=== PATIENT | female | born 1990 | race Caucasian/White ===

== ENCOUNTER 2020-08-05 13:41 | Emergency (ER) | payer OTHER, SELFPAY ==
[2020-08-05 14:22] VITALS: BP 114/78; PULSE 87; RESP 18; TEMP 36.4; O2SAT 100; BMI 26.6
[2020-08-05 15:44] LABS: MANUAL DIFF FLAG NO
[2020-08-05 15:46] LABS: Basophils Percent Auto 0.3 % (0-2); Eosinophils Absolute Auto 0.1 X10*3/uL (0.0-0.4); Hematocrit 38.7 % (37-47); Hemoglobin 13.6 g/dl (12.0-16.0); Imm Gran Abs Auto 0.02 X10*3/uL (0.00-0.03); Imm Gran Pct Auto 0.3 % (0.0-0.4); Lymphocytes Absolute Auto 2.1 X10*3/uL (1.2-4.9); Mean Corpuscular HGB Conc 35.1 g/dl (31.0-35.0); Mean Corpuscular Hemoglobin 30.4 pg (27.0-33.0); Mean Corpuscular Volume 86.6 fL (80-98); Mean Platelet Volume 8.7 fL (9.4-12.3); Monocytes Absolute Auto 0.6 X10*3/uL (0.1-1.2); Monocytes Percent Auto 7.9 % (2-11); Neutrophils Absolute Auto 4.6 X10*3/uL (2.0-8.3); Neutrophils Percent Auto 62.5 % (45-73); Platelet Count 374 X10*3/uL (160-400); Red Blood Count 4.47 X10*6/uL (4.20-5.50); Red Cell Distribution Width 11.8 % (11.0-16.0); White Blood Count 7.4 X10*3/uL (4.8-10.8)
[2020-08-05 16:14] LABS: Alanine Aminotransferase 14 U/L (0-31); Albumin Level 4.3 g/dL (3.5-5.0); Alkaline Phosphatase 65 U/L (39-117); Anion Gap 13 (12-20); Aspartate Amino Transferase 13 U/L (5-31); Bilirubin Direct 0.2 mg/dL (0.0-0.5); Bilirubin Total 0.4 mg/dL (0.0-1.0); Blood Urea Nitrogen 15 mg/dL (9-16); Calcium 9.6 mg/dL (8.4-10.2); Carbon Dioxide 26 mmol/L (22-29); Chloride 106 mmol/L (96-108); Estimated Glomerular Filt Rate > 60; Glucose Random 86 mg/dL (60-115); Lipase 14 U/L (8-78); Potassium 4.6 mmol/L (3.3-5.1); Sodium 140 mmol/L (135-145); Total Protein 7.3 g/dL (6.5-8.0)
== END 2020-08-05 17:53 | disposition left against medical advice (07) ==
LOC: HO.ED 17:47
PROVIDERS: Emergency Provider Emergency Medicine; PCP Internal Medicine
DX: R10.9 Unspecified abdominal pain (principal)
CPT/HCPCS: 36415; 80053; 80076; 82248; 83690; 85025; 99282; 99283

== ENCOUNTER 2021-06-18 08:07 | Emergency (ER) | payer OTHER, SELFPAY ==
[2021-06-18 08:10] VITALS: BP 137/82; PULSE 93; RESP 18; TEMP 36.3; O2SAT 97; BMI 29.3
--- NOTE | 2021-06-18 09:03 | ED.SKABFB ---
HPI - Skin/Abscess/Foreign Bdy General Chief complaint: Skin/Abscess/Foreign Body Stated complaint: Chemical burn - arm Time Seen by Provider: 06/18/21 09:03 Source: patient Mode of arrival: ambulatory History of Present Illness HPI narrative: 30-year-old female with a past medical history of bipolar, PCOS, presenting to the ED complaining of chemical burn to right forearm s/p using Easy-Off heavy duty oven water filter cleaner while cleaning this morning. Reports area is burning/stinging. Admits to washing with water for about 5 minutes this morning [employer]. Admits to swell area to left. Denies fever/chills or thermal burn MD complaint: rash Related Data Previous Rx's Medication Instructions Recorded fluconazole 100 mg tablet 100 mg PO .COMPLEX #11 tab 11/28/19 (Diflucan) meloxicam 7.5 mg tablet 7.5 mg PO DAILY PRN #14 tab 11/15/20 acetaminophen 500 mg tablet 500 mg PO Q6H PRN #20 tab 06/18/21 (Tylenol Extra Strength) bacitracin 500 unit/gram topical 1 appl TOPICAL BID #30 g 06/18/21 ointment Allergies Allergy/AdvReac Type Severity Reaction Status Date / Time haloperidol [From HALDOL] Allergy Severe INVOLUNTARY Verified 06/18/21 08:10 SPASMS ketorolac [From TORADOL] Allergy Intermediate HIVES Verified 06/18/21 08:10 Penicillins [PENICILLINS] Allergy Intermediate HIVES Verified 06/18/21 08:10 Sulfa (Sulfonamide Allergy Unknown UNKNOWN Verified 06/18/21 08:10 Antibiotics) [SULFA (SULFONAMIDE ANTIBIOTICS)] sulfamethoxazole Allergy Unknown UNKNOWN Verified 06/18/21 08:10 [From BACTRIM] trimethoprim [From BACTRIM] Allergy Unknown UNKNOWN Verified 06/18/21 08:10 shellfish derived Allergy Anaphylaxis Verified 06/18/21 08:10 Review of Systems Review of Systems: Constitutional: No Fever, No Chills ENT/Mouth: No Ear Pain, No Nasal Congestion, No sore throat, No Rhinorrhea, No Swallowing Difficulty Cardiovascular: No Chest Pain, No SOB Respiratory: No Cough, No Sputum, No Wheezing Gastrointestinal: No Nausea, No Vomiting, No Diarrhea, No Constipation, No Abdominal pain Genitourinary: No Dysuria, No Urinary Frequency, No Flank Pain Musculoskeletal: No joint pain, No Myalgias, No Joint Swelling Skin: No Skin Lesions, + rash Neuro: No Weakness Yes all other systems are reviewed and are negative [facility] Past Medical History Attestation statement: The following information was validated with the patient. Medical History Bipolar 1 disorder PCOS (polycystic ovarian syndrome) Social History Social History Alcohol intake: never Patient Tobacco Use Status: Current everyday Tobacco user Cigarettes Per Day: 5 Advance Directives: No Advance Directives Information Provided: No Physical Exam Vital Signs: Vital Signs: Last Vital Signs Temp 97.3 F 06/18/21 08:10 Pulse 93 06/18/21 08:10 Resp 18 06/18/21 08:10 BP 137/82 06/18/21 08:10 Pulse Ox 97 06/18/21 08:10 BMI result Body Mass Index 29.3 Const: General: cooperative, healthy appearing and no acute distress Orientation/consciousness: patient oriented x3 Limitations: no limitations HEENT: Head: Yes normal to inspection and Yes atraumatic Ears: hearing grossly normal bilaterally General nose exam: Normal external nose present Face and sinus: Yes normal facial exam Eyes: General: appearance normal, both eyes and all related structures EOM: EOMs intact bilaterally Neck: Neck: Yes normal visual inspection and Yes no meningeal signs Resp: Effort & Inspection: normal respiratory effort and no respiratory distress Cardio: Rate: regular rate Peripheral pulses: radial pulses present Skin: Other: Please refer to image above.+ erythematous, burn to right forearm. Tender to palpation. No blistering/bleeding. No fluctuance/induration or drainage. Wounds: no wounds Neuro: General: patient oriented x3, tone normal and no meningeal signs Gait exam (Neuro): Normal gait present Extrem: General: Yes normal to inspection MDM - Skin/Abscess/Foreign Bdy MDM Narrative Medical decision making narrative: 30-year-old female with a past medical history of bipolar, PCOS, presenting to the ED complaining of chemical burn to right forearm s/p using oven water filter cleaner while cleaning this morning. On exam vital signs stable, NAD/nontoxic, physical exam as above. Please refer to images. No hydrofluoric acid in ingredients Will have patient irrigate additionally in the ED and apply topical bacitracin at home Discussed worrisome signs and symptoms and strict return precautions Medical Records Attestation: I reviewed the patient's medical records. Lab Data Attestation: I reviewed the patient's lab results. Discharge Plan Discharge Clinical Impression: Chemical burn Patient Disposition: Home, Self-Care Instructions: Chemical Skin Burn (ED) Additional Instructions: Your gait burn at home. Apply topical bacitracin twice daily. You may also put cold/ice to the area however put a barrier between the ice and skin If area begins to look infected, there is drainage or you have fever please return to the emergency department Prescriptions: New bacitracin 500 unit/gram ointment 1 appl topical BID Qty: 30 0RF acetaminophen [Tylenol Extra Strength] 500 mg tablet 500 mg PO Q6H PRN (Reason: pain or fever) Qty: 20 0RF No Action fluconazole [Diflucan] 100 mg tablet 100 mg PO .COMPLEX Qty: 11 0RF Rx Instructions: 100 mg PO 2 pills a day 1, 1 pill daily; meloxicam 7.5 mg tablet 7.5 mg PO DAILY PRN (Reason: pain) Qty: 14 0RF Referrals: Consuelo Thomas APRN [Primary Care Provider] - 3 days
--- NOTE | 2021-06-18 09:22 | PC.NURSE ---
PT NOT SATISFIED WITH BEING OFFERED IBUPROFEN OR TYLENOL FOR HER PAIN. PT ASKING TO SPEAK DIRECTLY WITH PROVIDER ABOUT THIS. PROVIDER AWARE AND SPOKE WITH PATIENT.
== END 2021-06-18 09:28 | disposition home or self-care (01) ==
PROVIDERS: Emergency Provider Emergency Medicine; PCP Nurse Practitioner Pediatrics
DX: T22.411A Corrosion of unspecified degree of right forearm, initial encounter (principal); T32.0 Corrosions involving less than 10% of body surface; Y93.E9 Activity, other interior property and clothing maintenance; Y92.000 Kitchen of unspecified non-institutional (private) residence as the place of occurrence of the external cause; Y99.9 Unspecified external cause status
CPT/HCPCS: 99283

== ENCOUNTER 2022-04-10 06:16 | Emergency (ER) | payer OTHER, SELFPAY ==
--- NOTE | ~2022-04-10 | US_ITS ---
EXAMINATION: US RETROPERITONEAL LIMITED (RENAL ONLY) CLINICAL INFORMATION: Left flank pain. COMPARISON: 04/27/2019 right renal ultrasound. TECHNIQUE: Multiple 2-D grayscale and Doppler ultrasound images of the kidneys were obtained. FINDINGS: RIGHT KIDNEY: 10.8 x 4.9 x 5.2 cm (SAG x AP x TRV). An echogenic focus in the upper pole measures 0.4 cm. Color Doppler showed no abnormal vascular flow. No hydronephrosis. LEFT KIDNEY: 11.1 x 4.9 x 5.1 cm (SAG x AP x TRV). The kidney is normal in size, contour, and echogenicity. Renal cortical thickness is normal. No calculi or focal parenchymal lesions. No hydronephrosis. US/US renal BI IMPRESSION: 0.4 cm echogenic focus in the upper pole the right kidney is nonspecific. A nonobstructing calculus cannot be excluded. No other significant abnormality.
--- NOTE | ~2022-04-10 | US_ITS ---
EXAMINATION: US PELVIS TRANSABDOMINAL/TRANSVAGINAL COMPLETE CLINICAL INFORMATION: Left-sided pelvic pain, rule out torsion. COMPARISON: None TECHNIQUE: Ultrasound of the pelvis is performed using both transabdominal and transvaginal transducers along with Doppler. Transvaginal imaging is performed due to inadequate visualization transabdominally. FINDINGS: Uterus: Anteverted/anteflexed measuring 8.1 x 4.0 x 5.0 cm. The endometrial stripe measures up to 0.5 cm without focal abnormality. Color Doppler showed no abnormal vascular flow. The cervix is closed measuring up to 3.0 cm in length. No significant free fluid in the cul-de-sac. Minimal pelvic free fluid. Right ovary measures 2.6 x 2.1 x 1.6 cm. 4.6 mL volume. Color Doppler showed no abnormal vascular flow. Left ovary measures 3.3 x 1.9 x 2.5 cm. 8.1 mL volume. Color Doppler showed no abnormal vascular flow. Urinary bladder: Mildly distended without focal abnormality. US/US pelvic and transvaginal IMPRESSION: Unremarkable pelvic ultrasound. No evidence for ovarian torsion.
--- NOTE | ~2022-04-10 | US_ITS ---
EXAMINATION: US PELVIS TRANSABDOMINAL/TRANSVAGINAL COMPLETE CLINICAL INFORMATION: Left-sided pelvic pain, rule out torsion. COMPARISON: None TECHNIQUE: Ultrasound of the pelvis is performed using both transabdominal and transvaginal transducers along with Doppler. Transvaginal imaging is performed due to inadequate visualization transabdominally. FINDINGS: Uterus: Anteverted/anteflexed measuring 8.1 x 4.0 x 5.0 cm. The endometrial stripe measures up to 0.5 cm without focal abnormality. Color Doppler showed no abnormal vascular flow. The cervix is closed measuring up to 3.0 cm in length. No significant free fluid in the cul-de-sac. Minimal pelvic free fluid. Right ovary measures 2.6 x 2.1 x 1.6 cm. 4.6 mL volume. Color Doppler showed no abnormal vascular flow. Left ovary measures 3.3 x 1.9 x 2.5 cm. 8.1 mL volume. Color Doppler showed no abnormal vascular flow. Urinary bladder: Mildly distended without focal abnormality. US/US pelvic ovarian doppler IMPRESSION: Unremarkable pelvic ultrasound. No evidence for ovarian torsion.
[2022-04-10 06:28] VITALS: BP 126/82; PULSE 91; RESP 18; TEMP 36.6; O2SAT 95; BMI 29.9
[2022-04-10 07:55] VITALS: BP 117/80; PULSE 66; RESP 17; TEMP 36.7; O2SAT 96
[2022-04-10 08:44] LABS: MANUAL DIFF FLAG NO
[2022-04-10 08:46] LABS: Basophils Percent Auto 0.3 % (0-2); Eosinophils Absolute Auto 0.1 X10*3/uL (0.0-0.4); Eosinophils Percent Auto 0.8 % (0-4); Hematocrit 39.4 % (37.0-47.0); Hemoglobin 13.1 g/dl (12.0-16.0); Imm Gran Abs Auto 0.01 X10*3/uL (0.00-0.03); Imm Gran Pct Auto 0.2 % (0.0-0.4); Lymphocytes Absolute Auto 1.8 X10*3/uL (1.2-4.9); Lymphocytes Percent Auto 26.7 % (20-40); Mean Corpuscular HGB Conc 33.2 g/dl (31.0-35.0); Mean Corpuscular Volume 87.4 fL (80.0-98.0); Mean Platelet Volume 8.4 fL (9.4-12.3); Monocytes Absolute Auto 0.6 X10*3/uL (0.1-1.2); Monocytes Percent Auto 9.3 % (2-11); Neutrophils Absolute Auto 4.1 x10*3/uL (2.0-8.3); Neutrophils Percent Auto 62.7 % (45-73); Platelet Count 312 X10*3/uL (160-400); Red Blood Count 4.51 X10*6/uL (4.20-5.50); Red Cell Distribution Width 12.4 % (11.0-16.0); White Blood Count 6.6 X10*3/uL (4.8-10.8)
[2022-04-10 08:49] LABS: Appearance Urine Clear; Color Urine Yellow; Glucose Urine UA Negative (Negative); Leukocyte Esterase Urine Negative (Negative); Nitrite Urine Negative (Negative); Specific Gravity - Urine 1.025 (1.005-1.025); UMIC TRIGGER UACC YES; Urine Blood Trace (Negative); Urine Ketones Negative (Negative); Urine Protein Negative (Neg-Trace)
[2022-04-10 08:54] LABS: UPreg QC Valid YES; Urine Pregnancy NEGATIVE (NEGATIVE)
[2022-04-10] MEDS: ondansetron HCL 4 MG/2 ML VIAL IVPUSH (08:58)
[2022-04-10] MEDS: HYDROmorphone HCl 1 MG/ML SYRINGE 0.5 MG IVPUSH (08:58)
[2022-04-10] MEDS: 0.9 % Sodium Chloride 1,000 ML 999 ML IV (08:58)
--- NOTE | 2022-04-10 09:05 | PC.NURSE ---
PT CURRENTLY IN ULTRASOUND
[2022-04-10 09:07] LABS: Alanine Aminotransferase 14 U/L (0-31); Albumin Level 4.2 g/dL (3.5-5.0); Alkaline Phosphatase 65 U/L (39-117); Anion Gap 11 (12-20); Aspartate Amino Transferase 11 U/L (5-31); Bilirubin Direct < 0.2 mg/dL (0.0-0.5); Bilirubin Total 0.4 mg/dL (0.0-1.0); Blood Urea Nitrogen 16 mg/dL (9-16); Carbon Dioxide 21 mmol/L (22-29); Chloride 114 mmol/L (96-108); Creatinine Clr Calc Pharmacy 135.2; Estimated Glomerular Filt Rate > 60; Glucose Random 88 mg/dL (60-115); Lipase 15 U/L (8-78); Potassium 4.2 mmol/L (3.3-5.1); Sodium 142 mmol/L (135-145); Total Protein 6.7 g/dL (6.5-8.0)
[2022-04-10 09:22] LABS: Bacteria Urine 1+ (None Seen); Hyaline Casts Urine 0-2 /LPF (0-2); WBC Urine 0-5 /HPF (0-5)
[2022-04-10 10:03] VITALS: BP 120/77; PULSE 58; RESP 17; TEMP 36.7; O2SAT 95
--- NOTE | 2022-04-10 11:22 | ED.GENADULT ---
HPI - General Adult General Chief complaint: Abdominal Pain Stated complaint: pelvic pain, possible kidney infection Time Seen by Provider: 04/10/22 08:02 Source: patient Mode of arrival: ambulatory Limitations: no limitations History of Present Illness HPI narrative: 31-year-old female with history of pelvic congestion syndrome presents with pelvic pain. The pain is left-sided. It radiates to the flank. There is a constant component with exacerbations. The symptoms are no clear relieving or exacerbating features. There is no urinary frequency, urgency or dysuria. There is dark urine color. She does have some nausea but no vomiting. She denies any constipation or diarrhea. Her symptoms are consistent with her previous pelvic congestion with the exception that her symptoms are worse than usual and they are now radiating to the left flank. Patient denies any fevers chills, cough, mucus production, runny nose, sore throat, rashes, headaches, vision changes Related Data Home Medications Medication Instructions Recorded Confirmed sertraline 100 mg tablet 200 mg PO DAILY 07/15/21 Previous Rx's Medication Instructions Recorded fluconazole 100 mg tablet 100 mg PO .COMPLEX #11 tabs 11/28/19 (Diflucan) meloxicam 7.5 mg tablet 7.5 mg PO DAILY PRN pain #14 tabs 11/15/20 acetaminophen 500 mg tablet 500 mg PO Q6H PRN pain or fever 06/18/21 (Tylenol Extra Strength) #20 tabs bacitracin 500 unit/gram topical 1 appl topical BID #30 grams 06/18/21 ointment oxycodone 5 mg tablet 5 mg PO Q8H PRN pain #10 tabs 04/10/22 Allergies Allergy/AdvReac Type Severity Reaction Status Date / Time haloperidol [From HALDOL] Allergy Severe INVOLUNTARY Verified 04/10/22 06:28 SPASMS ketorolac [From TORADOL] Allergy Intermediate HIVES Verified 04/10/22 06:28 Penicillins [PENICILLINS] Allergy Intermediate HIVES Verified 04/10/22 06:28 Sulfa (Sulfonamide Allergy Unknown UNKNOWN Verified 04/10/22 06:28 Antibiotics) [SULFA (SULFONAMIDE ANTIBIOTICS)] sulfamethoxazole Allergy Unknown UNKNOWN Verified 04/10/22 06:28 [From BACTRIM] trimethoprim [From BACTRIM] Allergy Unknown UNKNOWN Verified 04/10/22 06:28 shellfish derived Allergy Anaphylaxis Verified 04/10/22 06:28 Review of Systems Review of Systems: CONSTITUTIONAL: Denies weight loss, fever and chills. HEENT: Denies changes in vision and hearing. RESPIRATORY: Denies SOB and cough. CV: Denies palpitations no CP. GI: Positive for pelvic pain, nausea, no vomiting, no diarrhea constipation a. : Denies dysuria and urinary frequency. No vaginal discharge or bleeding MSK: Denies myalgia and joint pain. SKIN: Denies rash and pruritus. NEUROLOGICAL: Denies headache and syncope. PSYCHIATRIC: Denies recent changes in mood. Denies anxiety and depression. All other ROS are negative unless in HPI PMFSH Past Medical History Medical History Bipolar 1 disorder PCOS (polycystic ovarian syndrome) Social History Social History Alcohol intake: never Patient Tobacco Use Status: Current everyday Tobacco user Cigarettes Per Day: 5 Advance Directives: No Advance Directives Information Provided: Yes Physical Exam ED Vital Signs: Vital Signs - 24 hr 04/10/22 06:28 04/10/22 07:55 04/10/22 10:03 Temperature 97.9 F 98.0 F 98.0 F Pulse Rate 91 66 58 Respiratory Rate 18 17 17 Blood Pressure 126/82 117/80 120/77 Pulse Oximetry 95 96 95 Oxygen Delivery Method Room Air Room Air Room Air BMI result Body Mass Index 29.9 GEN: Well developed, no acute distress, alert, oriented HEENT: Normocephalic, atraumatic, normal external ears, nose appears normal, no oropharyngeal edema or exudates Eyes: Normal to appearance Neck: Supple, no lymphadenopathy Respiratory: Talks in complete sentences, no respiratory distress, clear to auscultation bilaterally Cardiovascular: Regular rate and rhythm, no murmurs rubs or gallops Abdomen: Soft, nontender, nondistended, no guarding, no rebound Back: No CVA tenderness Extremities: No clubbing cyanosis or edema Neurologic: No focal neurologic deficits, cranial nerves 2-12 intact, strength is 5/5 bilaterally, gait normal Skin: No rash Course Course Course Narrative: 31-year-old female with history of pelvic congestion presents with pelvic pain. The symptoms are severe. They are worse than usual. Examination was. Patient had an ultrasound which did not identify any evidence of torsion or hydronephrosis. There was a possible nonobstructing kidney stone. Lab work did not reveal any significant acute abnormalities. She will receive analgesics, antiemetics, IV fluids and re-evaluate. Reevaluation(s) Reevaluation #1: Patient reports pain was improved temporarily. Will provide additional pain medication at this time. Time: 11:25 Reevaluation #2: Patient is currently feeling well enough would like to be discharged. We discussed all results. She has follow-up with her OBGYN. She is aware of reasons to return to the emergency department. Time: 11:59 Medications Administered Discontinued Medications Generic Name Dose Route Start Last Admin Trade Name Freq PRN Reason Stop Dose Admin Hydromorphone HCl 0.5 mg 04/10/22 08:08 04/10/22 08:58 Hydromorphone Hcl 1 Mg/Ml Syringe IVPUSH 04/10/22 08:09 0.5 mg ONCE ONE Administration Protocol Hydromorphone HCl 0.5 mg 04/10/22 11:28 04/10/22 11:41 Hydromorphone Hcl 0.5 Mg/0.5 Ml Syringe IVPUSH 04/10/22 11:29 0.5 mg ONCE ONE Administration Protocol Sodium Chloride 1,000 mls @ 999 mls/hr 04/10/22 08:15 04/10/22 10:00 Ns IV 04/10/22 09:15 Infused .Q1H1M SD Infusion Ondansetron HCl 4 mg 04/10/22 08:51 04/10/22 08:58 Ondansetron Hcl 4 Mg/2 Ml Vial IVPUSH 04/10/22 08:52 4 mg ONCE ONE Administration Medical Decision Making Medical Decision Making [facility] Narrative: 31-year-old female with history of pelvic congestion syndrome presents with pelvic pain. Is worse than usual. Radiates to the left flank. Multiple differential diagnosis of been considered including etiology, renal colic. Will order ultrasound of the abdomen pelvis and re-evaluate. Differential Diagnosis Differential Diagnoses: The differential diagnosis associated with the presentation includes (Pelvic congestion, torsion, ovarian cyst, IBD, IBS, renal colic, pyelonephritis) Admission/Observation Consideration of admission/observation: Escalation of care including admission/observation considered Lab Data [facility] Lab Attestation statement: I reviewed the patient's lab results. 04/10/22 08:36 04/10/22 08:36 Labs: Lab Results 04/10/22 04/10/22 04/10/22 Range/Units 08:36 08:36 08:40 WBC 6.6 (4.8-10.8) X10*3/uL RBC 4.51 (4.20-5.50) X10*6/uL Hgb 13.1 (12.0-16.0) g/dl Hct 39.4 (37.0-47.0) % MCV 87.4 (80.0-98.0) fL MCH 29.0 (27.0-33.0) pg MCHC 33.2 (31.0-35.0) g/dl RDW 12.4 (11.0-16.0) % Plt Count 312 (160-400) X10*3/uL MPV 8.4 L (9.4-12.3) fL Immature Gran % (Auto) 0.2 (0.0-0.4) % Neut % (Auto) 62.7 (45-73) % Lymph % (Auto) 26.7 (20-40) % [place] % (Auto) 9.3 (2-11) % Eos % (Auto) 0.8 (0-4) % Baso % (Auto) 0.3 (0-2) % Lymph # (Auto) 1.8 (1.2-4.9) X10*3/uL [place] # (Auto) 0.6 (0.1-1.2) X10*3/uL Eos # (Auto) 0.1 (0.0-0.4) X10*3/uL Baso # (Auto) 0.0 (0.0-0.2) X10*3/uL Abs Immat Gran (auto) 0.01 (0.00-0.03) X10*3/uL Absolute Neuts (auto) 4.1 (2.0-8.3) x10*3/uL Absolute Nucleated RBC 0.000 (0.0-0.012) X10*3/uL Nucleated RBC % (auto) 0.0 (0.0-0.2) /100WBC Sodium 142 (135-145) mmol/L Potassium 4.2 (3.3-5.1) mmol/L Chloride 114 H (96-108) mmol/L Carbon Dioxide 21 L (22-29) mmol/L Anion Gap 11 L (12-20) BUN 16 (9-16) mg/dL Creatinine 0.66 (0.5-1.4) mg/dL Estim Creat Clear Calc 135.2 Estimated GFR > 60 Random Glucose 88 (60-115) mg/dL Calcium 9.0 D (8.4-10.2) mg/dL Total Bilirubin 0.4 (0.0-1.0) mg/dL Direct Bilirubin < 0.2 (0.0-0.5) mg/dL AST 11 (5-31) U/L ALT 14 (0-31) U/L Alkaline Phosphatase 65 (39-117) U/L Total Protein 6.7 (6.5-8.0) g/dL Albumin 4.2 (3.5-5.0) g/dL Lipase 15 (8-78) U/L Urine Color Yellow Urine Appearance Clear Urine pH 8.0 (5.0-9.0) Ur Specific [place] 1.025 (1.005-1.025) Urine Protein Negative (Neg-Trace) mg/dL Urine Glucose (UA) Negative (Negative) mg/dL Urine Ketones Negative (Negative) mg/dL Urine Blood Trace H (Negative) Urine Nitrite Negative (Negative) Ur Leukocyte Esterase Negative (Negative) Urine RBC 11-20 H (0-2) /HPF Urine WBC 0-5 (0-5) /HPF Ur Squamous Epith Cells 3-5 (0-2) /HPF Urine Bacteria 1+ (None Seen) Hyaline Casts 0-2 (0-2) /LPF Urine Test (NEGATIVE) 04/10/22 Range/Units 08:40 WBC (4.8-10.8) X10*3/uL RBC (4.20-5.50) X10*6/uL Hgb (12.0-16.0) g/dl Hct (37.0-47.0) % MCV (80.0-98.0) fL MCH (27.0-33.0) pg MCHC (31.0-35.0) g/dl RDW (11.0-16.0) % Plt Count (160-400) X10*3/uL MPV (9.4-12.3) fL Immature Gran % (Auto) (0.0-0.4) % Neut % (Auto) (45-73) % Lymph % (Auto) (20-40) % [place] % (Auto) (2-11) % Eos % (Auto) (0-4) % Baso % (Auto) (0-2) % Lymph # (Auto) (1.2-4.9) X10*3/uL [place] # (Auto) (0.1-1.2) X10*3/uL Eos # (Auto) (0.0-0.4) X10*3/uL Baso # (Auto) (0.0-0.2) X10*3/uL Abs Immat Gran (auto) (0.00-0.03) X10*3/uL Absolute Neuts (auto) (2.0-8.3) x10*3/uL Absolute Nucleated RBC (0.0-0.012) X10*3/uL Nucleated RBC % (auto) (0.0-0.2) /100WBC Sodium (135-145) mmol/L Potassium (3.3-5.1) mmol/L Chloride (96-108) mmol/L Carbon Dioxide (22-29) mmol/L Anion Gap (12-20) BUN (9-16) mg/dL Creatinine (0.5-1.4) mg/dL Estim Creat Clear Calc Estimated GFR Random Glucose (60-115) mg/dL Calcium (8.4-10.2) mg/dL Total Bilirubin (0.0-1.0) mg/dL Direct Bilirubin (0.0-0.5) mg/dL AST (5-31) U/L ALT (0-31) U/L Alkaline Phosphatase (39-117) U/L Total Protein (6.5-8.0) g/dL Albumin (3.5-5.0) g/dL Lipase (8-78) U/L Urine Color Urine Appearance Urine pH (5.0-9.0) Ur Specific [place] (1.005-1.025) Urine Protein (Neg-Trace) mg/dL Urine Glucose (UA) (Negative) mg/dL Urine Ketones (Negative) mg/dL Urine Blood (Negative) Urine Nitrite (Negative) Ur Leukocyte Esterase (Negative) Urine RBC (0-2) /HPF Urine WBC (0-5) /HPF Ur Squamous Epith Cells (0-2) /HPF Urine Bacteria (None Seen) Hyaline Casts (0-2) /LPF Urine Test NEGATIVE (NEGATIVE) Independent Interpretation I performed an independent interpretation of an: Ultrasound (No torsion, no hydronephrosis) Radiology Impression Discussion of test interpretation with radiology: I have reviewed the radiologist's reading. (IMPRESSION: Unremarkable pelvic ultrasound. No evidence for ovarian torsion. Dictated By:Antoine Barronigned By:<Electronically signed by Antoine Barron MD in [facility]>04/10/22 1050) Radiologist Impression: IMPRESSION: 0.4 cm echogenic focus in the upper pole the right kidney is nonspecific. A nonobstructing calculus cannot be excluded. No other significant abnormality. ? Dictated By: Antoine Barron MD Signed By: <Electronically signed by Antoine Barron MD in [facility]> 04/10/22 1010 External Record Review External record reviewed: Outpatient record (Urgent care visit from 07/15/2021) Tests considered The following testing was considered but not selected: CT scan Prescription Management I considered prescription management with: Pain Medication Chronic Conditions Patient?s care impacted by: Other (Pelvic congestion) Discharge Plan Discharge Clinical Impression: Abdominal pain, Pelvic congestion Patient Disposition: Home, Self-Care Instructions: Abdominal Pain (ED) Prescriptions: New oxycodone 5 mg tablet 5 mg PO Q8H PRN (Reason: pain) Qty: 10 0RF Rx Instructions: Partial Fill upon patient request. No Action acetaminophen [Tylenol Extra Strength] 500 mg tablet 500 mg PO Q6H PRN (Reason: pain or fever) Qty: 20 0RF bacitracin 500 unit/gram ointment 1 appl topical BID Qty: 30 1RF fluconazole [Diflucan] 100 mg tablet 100 mg PO .COMPLEX Qty: 11 0RF Rx Instructions: 100 mg PO 2 pills a day 1, 1 pill daily; meloxicam 7.5 mg tablet 7.5 mg PO DAILY PRN (Reason: pain) Qty: 14 0RF sertraline 100 mg tablet 200 mg PO DAILY Referrals: Physician,Unknown J [Primary Care Provider] - (Primary care provider in 2-3 days, marketing research coordinator within 2-3 days)
[2022-04-10] MEDS: HYDROmorphone HCl 0.5 MG/0.5 ML SYRINGE IVPUSH (11:41)
== END 2022-04-10 12:21 | disposition home or self-care (01) ==
PROVIDERS: Emergency Provider Emergency Medicine
DX: R10.9 Unspecified abdominal pain (principal); R10.2 Pelvic and perineal pain; F17.210 Nicotine dependence, cigarettes, uncomplicated; Z71.6 Tobacco abuse counseling; Z79.899 Other long term (current) drug therapy
CPT/HCPCS: 36415; 76775; 76830; 76856; 80048; 80076; 81001; 81003; 81025; 83690; 85025; 93975; 96361; 96374; 96375; 96376; 99284; J1170; J2405

== ENCOUNTER 2022-04-30 06:56 | Emergency (ER) | payer OTHER, SELFPAY ==
[2022-04-30 07:00] VITALS: BP 127/83; PULSE 75; RESP 16; TEMP 36.2; O2SAT 97; BMI 29.8
[2022-04-30 07:20] LABS: MANUAL DIFF FLAG NO
[2022-04-30 07:24] LABS: Basophils Percent Auto 0.4 % (0-2); Eosinophils Absolute Auto 0.1 X10*3/uL (0.0-0.4); Eosinophils Percent Auto 0.7 % (0-4); Hematocrit 42.2 % (37.0-47.0); Imm Gran Abs Auto 0.02 X10*3/uL (0.00-0.03); Imm Gran Pct Auto 0.3 % (0.0-0.4); Lymphocytes Absolute Auto 2.7 X10*3/uL (1.2-4.9); Lymphocytes Percent Auto 39.1 % (20-40); Mean Corpuscular HGB Conc 33.2 g/dl (31.0-35.0); Mean Corpuscular Hemoglobin 28.8 pg (27.0-33.0); Mean Corpuscular Volume 86.8 fL (80.0-98.0); Mean Platelet Volume 8.4 fL (9.4-12.3); Monocytes Absolute Auto 0.4 X10*3/uL (0.1-1.2); Monocytes Percent Auto 6.3 % (2-11); Neutrophils Absolute Auto 3.6 x10*3/uL (2.0-8.3); Neutrophils Percent Auto 53.2 % (45-73); Platelet Count 388 X10*3/uL (160-400); Red Blood Count 4.86 X10*6/uL (4.20-5.50); Red Cell Distribution Width 12.5 % (11.0-16.0); White Blood Count 6.8 X10*3/uL (4.8-10.8)
[2022-04-30 07:46] LABS: IDNOW Serial# BCCEAD1C
[2022-04-30 07:47] LABS: COVID-19 Test Negative (Negative)
[2022-04-30 07:51] LABS: Alanine Aminotransferase 11 U/L (0-31); Albumin Level 4.6 g/dL (3.5-5.0); Alkaline Phosphatase 82 U/L (39-117); Anion Gap 18 (12-20); Aspartate Amino Transferase 10 U/L (5-31); Bilirubin Direct < 0.2 mg/dL (0.0-0.5); Bilirubin Total 0.3 mg/dL (0.0-1.0); Blood Urea Nitrogen 18 mg/dL (9-16); Calcium 9.6 mg/dL (8.4-10.2); Carbon Dioxide 20 mmol/L (22-29); Chloride 107 mmol/L (96-108); Creatinine Clr Calc Pharmacy 112.6; Estimated Glomerular Filt Rate > 60; Glucose Random 120 mg/dL (60-115); Lipase 20 U/L (8-78); Potassium 4.5 mmol/L (3.3-5.1); Sodium 140 mmol/L (135-145); Total Protein 7.4 g/dL (6.5-8.0)
[2022-04-30 08:11] VITALS: BP 128/70; PULSE 78; RESP 16; TEMP 36.8; O2SAT 98
[2022-04-30 09:02] LABS: Appearance Urine Clear; Color Urine Yellow; Glucose Urine UA Negative (Negative); Leukocyte Esterase Urine Trace (Negative); Nitrite Urine Negative (Negative); PH 6.5 (5.0-9.0); Specific Gravity - Urine 1.025 (1.005-1.025); UMIC TRIGGER UACC YES; UPreg QC Valid YES; Urine Blood Small (1+) (Negative); Urine Ketones Negative (Negative); Urine Pregnancy NEGATIVE (NEGATIVE); Urine Protein Negative (Neg-Trace)
[2022-04-30 09:07] LABS: Bacteria Urine 1+ (None Seen); Hyaline Casts Urine 0-2 /LPF (0-2); WBC Urine 0-5 /HPF (0-5)
--- NOTE | 2022-04-30 09:09 | ED_ITS ---
HPI - Abdominal Pain General Chief Complaint: Abdominal Pain Stated Complaint: Vomiting/Pelvic pain Time Seen by Provider: 04/30/22 07:15 History of Present Illness HPI narrative: Patient is a 31 year female presented today with having abdominal pain. The pain is been ongoing for over a year. Patient has been seen at multiple institutions. Complaining of pain that is over the left side goes to the flank area the pain is of the same type. Patient had had a CT scan and MRI a laparo scopic exploratory surgery done. The diagnosis was pelvic congestion syndrome. Patient has been seen by her OBGYN at [facility]. She was given a prescription for Motrin. Patient claims that she went to [place] [facility]. Was given a script for morphine 15 mg. It tends to help but patient ran out. Patient claims that she last got a script about a month ago. Denies any fever chills. Denies any pain on urination. Denies any coughing congestion upper respiratory symptoms. No nausea no vomiting. Patient has someone to help take care of the kids at home. Patient also has a ride home. Once in additional script for narcotics pain medication. Patient has an allergy to Toradol. Patient was seen in mid March for almost the same symptoms. At the time had urine had ultrasound done. There is no evidence for torsion. Patient claims the pain is very similar. Related Data Home Medications Medication Instructions Recorded Confirmed sertraline 100 mg tablet 200 mg PO DAILY 07/15/21 Previous Rx's Medication Instructions Recorded fluconazole 100 mg tablet 100 mg PO .COMPLEX #11 tabs 11/28/19 (Diflucan) meloxicam 7.5 mg tablet 7.5 mg PO DAILY PRN pain #14 tabs 11/15/20 acetaminophen 500 mg tablet 500 mg PO Q6H PRN pain or fever 06/18/21 (Tylenol Extra Strength) #20 tabs bacitracin 500 unit/gram topical 1 appl topical BID #30 grams 06/18/21 ointment oxycodone 5 mg tablet 5 mg PO Q8H PRN pain #10 tabs 04/10/22 Allergies Allergy/AdvReac Type Severity Reaction Status Date / Time haloperidol [From HALDOL] Allergy Severe INVOLUNTARY Verified 04/10/22 06:28 SPASMS ketorolac [From TORADOL] Allergy Intermediate HIVES Verified 04/10/22 06:28 Penicillins [PENICILLINS] Allergy Intermediate HIVES Verified 04/10/22 06:28 Sulfa (Sulfonamide Allergy Unknown UNKNOWN Verified 04/10/22 06:28 Antibiotics) [SULFA (SULFONAMIDE ANTIBIOTICS)] sulfamethoxazole Allergy Unknown UNKNOWN Verified 04/10/22 06:28 [From BACTRIM] trimethoprim [From BACTRIM] Allergy Unknown UNKNOWN Verified 04/10/22 06:28 shellfish derived Allergy Anaphylaxis Verified 04/10/22 06:28 Review of Systems Review of Systems No fever no chills no diaphoresis. Yes all other systems are reviewed and are negative [facility] Past Medical History Attestation statement: The following information was validated with the patient. Medical History Bipolar 1 disorder PCOS (polycystic ovarian syndrome) Social History Social History Alcohol intake: never Patient Tobacco Use Status: Current everyday Tobacco user Cigarettes Per Day: 5 Advance Directives: No Advance Directives Information Provided: Yes Physical Exam ED Vital Signs: Vital Signs - 24 hr 04/30/22 07:00 04/30/22 08:11 Temperature 97.2 F 98.3 F Pulse Rate 75 78 Respiratory Rate 16 16 Blood Pressure 127/83 128/70 Pulse Oximetry 97 98 Oxygen Delivery Method Room Air Room Air BMI result Body Mass Index 29.8 Appearance: Alert. Oriented X3. No acute distress. Eyes: Pupils equal, round and reactive to light. ENT: Pharynx normal. Neck: Normal inspection. Neck supple. No lymph nodes noted. No crepitus CVS: Normal heart rate and rhythm. Pulses normal. Normal S1 and S2 Respiratory: No respiratory distress. Breath sounds normal. No Wheezing. No r ales Abdomen: Soft and nontender. No rigidity. No distention. good BS x4 Skin: Skin warm and dry. Normal skin color. Normal skin turgor. Extremities: No lower extremity edema. Neurovascular intact to all extremities. No Lacerations. No Rash Neuro: Oriented X 3. No motor deficit. No sensory deficit. Moving all extermities. No slurred speech Medical Decision Making Medical Decision Making MDM Narrative: Patient well appearing not acute distress. Abdominal exam is soft nontender. Patient has been having the same pain for the last year. Been to multiple providers. Had multiple imaging done. Including CT scans MRIs laparoscopic surgery. Patient's primary is not willing to give patient additional narcotics hence she presents to the emergency department. Explained to patient the pain is more chronic in nature needs to be followed up on an outpatient basis. Patient unlikely to have torsion is she has similar pain and had an ultrasound done already. Patient's test is negative unlikely to have ectopic . Patient's urine is negative there is no evidence for pyelonephritis. Patient is electrolyte white counts are all normal. Patient off for 1 dose of pain medication. Will discharge patient home. Need to follow-up with OBGYN on an outpatient basis. The dose of medication will be given when patient's family arrive. There was a small child in the room. Differential Diagnosis Differential Diagnoses: The differential diagnosis associated with the presentation includes Torsion, torsion, related issues, obstruction, abscess, perforation, diverticulitis, pyelonephritis Lab Data MDM Lab Attestation statement: I reviewed the patient's lab results. 04/30/22 07:14 04/30/22 07:14 Labs: Lab Results 04/30/22 04/30/22 04/30/22 Range/Units 07:14 07:14 07:14 WBC 6.8 (4.8-10.8) X10*3/uL RBC 4.86 (4.20-5.50) X10*6/uL Hgb 14.0 (12.0-16.0) g/dl Hct 42.2 (37.0-47.0) % MCV 86.8 (80.0-98.0) fL MCH 28.8 (27.0-33.0) pg MCHC 33.2 (31.0-35.0) g/dl RDW 12.5 (11.0-16.0) % Plt Count 388 (160-400) X10*3/uL MPV 8.4 L (9.4-12.3) fL Immature Gran % (Auto) 0.3 (0.0-0.4) % Neut % (Auto) 53.2 (45-73) % Lymph % (Auto) 39.1 (20-40) % Hinds % (Auto) 6.3 (2-11) % Eos % (Auto) 0.7 (0-4) % Baso % (Auto) 0.4 (0-2) % Lymph # (Auto) 2.7 (1.2-4.9) X10*3/uL Hinds # (Auto) 0.4 (0.1-1.2) X10*3/uL Eos # (Auto) 0.1 (0.0-0.4) X10*3/uL Baso # (Auto) 0.0 (0.0-0.2) X10*3/uL Abs Immat Gran (auto) 0.02 (0.00-0.03) X10*3/uL Absolute Neuts (auto) 3.6 (2.0-8.3) x10*3/uL Absolute Nucleated RBC 0.000 (0.0-0.012) X10*3/uL Nucleated RBC % (auto) 0.0 (0.0-0.2) /100WBC Sodium 140 (135-145) mmol/L Potassium 4.5 (3.3-5.1) mmol/L Chloride 107 (96-108) mmol/L Carbon Dioxide 20 L (22-29) mmol/L Anion Gap 18 (12-20) BUN 18 H (9-16) mg/dL Creatinine 0.79 (0.5-1.4) mg/dL Estim Creat Clear Calc 112.6 Estimated GFR > 60 Random Glucose 120 H (60-115) mg/dL Calcium 9.6 D (8.4-10.2) mg/dL Total Bilirubin 0.3 (0.0-1.0) mg/dL Direct Bilirubin < 0.2 (0.0-0.5) mg/dL AST 10 (5-31) U/L ALT 11 (0-31) U/L Alkaline Phosphatase 82 (39-117) U/L Total Protein 7.4 (6.5-8.0) g/dL Albumin 4.6 (3.5-5.0) g/dL Lipase 20 (8-78) U/L Urine Color Urine Appearance Urine pH (5.0-9.0) Ur Specific [place] (1.005-1.025) Urine Protein (Neg-Trace) mg/dL Urine Glucose (UA) (Negative) mg/dL Urine Ketones (Negative) mg/dL Urine Blood (Negative) Urine Nitrite (Negative) Ur Leukocyte Esterase (Negative) Urine RBC (0-2) /HPF Urine WBC (0-5) /HPF Ur Squamous Epith Cells (0-2) /HPF Urine Bacteria (None Seen) Hyaline Casts (0-2) /LPF Urine Test (NEGATIVE) COVID-19 ([facility]) Negative (Negative) COVID-19 Clin Com See Note 04/30/22 04/30/22 Range/Units 08:51 08:51 WBC (4.8-10.8) X10*3/uL RBC (4.20-5.50) X10*6/uL Hgb (12.0-16.0) g/dl Hct (37.0-47.0) % MCV (80.0-98.0) fL MCH (27.0-33.0) pg MCHC (31.0-35.0) g/dl RDW (11.0-16.0) % Plt Count (160-400) X10*3/uL MPV (9.4-12.3) fL Immature Gran % (Auto) (0.0-0.4) % Neut % (Auto) (45-73) % Lymph % (Auto) (20-40) % Hinds % (Auto) (2-11) % Eos % (Auto) (0-4) % Baso % (Auto) (0-2) % Lymph # (Auto) (1.2-4.9) X10*3/uL Hinds # (Auto) (0.1-1.2) X10*3/uL Eos # (Auto) (0.0-0.4) X10*3/uL Baso # (Auto) (0.0-0.2) X10*3/uL Abs Immat Gran (auto) (0.00-0.03) X10*3/uL Absolute Neuts (auto) (2.0-8.3) x10*3/uL Absolute Nucleated RBC (0.0-0.012) X10*3/uL Nucleated RBC % (auto) (0.0-0.2) /100WBC Sodium (135-145) mmol/L Potassium (3.3-5.1) mmol/L Chloride (96-108) mmol/L Carbon Dioxide (22-29) mmol/L Anion Gap (12-20) BUN (9-16) mg/dL Creatinine (0.5-1.4) mg/dL Estim Creat Clear Calc Estimated GFR Random Glucose (60-115) mg/dL Calcium (8.4-10.2) mg/dL Total Bilirubin (0.0-1.0) mg/dL Direct Bilirubin (0.0-0.5) mg/dL AST (5-31) U/L ALT (0-31) U/L Alkaline Phosphatase (39-117) U/L Total Protein (6.5-8.0) g/dL Albumin (3.5-5.0) g/dL Lipase (8-78) U/L Urine Color Yellow Urine Appearance Clear Urine pH 6.5 (5.0-9.0) Ur Specific [place] 1.025 (1.005-1.025) Urine Protein Negative (Neg-Trace) mg/dL Urine Glucose (UA) Negative (Negative) mg/dL Urine Ketones Negative (Negative) mg/dL Urine Blood Small (1+) H (Negative) Urine Nitrite Negative (Negative) Ur Leukocyte Esterase Trace H (Negative) Urine RBC 6-10 H (0-2) /HPF Urine WBC 0-5 (0-5) /HPF Ur Squamous Epith Cells 3-5 (0-2) /HPF Urine Bacteria 1+ (None Seen) Hyaline Casts 0-2 (0-2) /LPF Urine Test NEGATIVE (NEGATIVE) COVID-19 ([facility]) (Negative) COVID-19 Clin Com External Record Review Old ED record Chronic Conditions Pelvic congestion syndrome Discharge Plan Discharge Clinical Impression: Abdominal pain Patient Disposition: Home, Self-Care Instructions: Abdominal Pain (ED) Prescriptions: No Action oxycodone 5 mg tablet 5 mg PO Q8H PRN (Reason: pain) Qty: 10 0RF Rx Instructions: Partial Fill upon patient request. acetaminophen [Tylenol Extra Strength] 500 mg tablet 500 mg PO Q6H PRN (Reason: pain or fever) Qty: 20 0RF bacitracin 500 unit/gram ointment 1 appl topical BID Qty: 30 1RF fluconazole [Diflucan] 100 mg tablet 100 mg PO .COMPLEX Qty: 11 0RF Rx Instructions: 100 mg PO 2 pills a day 1, 1 pill daily; meloxicam 7.5 mg tablet 7.5 mg PO DAILY PRN (Reason: pain) Qty: 14 0RF sertraline 100 mg tablet 200 mg PO DAILY Referrals: Physician,None [Physician] - (Please follow-up with your OBGYN doctor on an outpatient basis.)
--- NOTE | 2022-04-30 09:43 | PC.NURSE ---
Patient becoming increasingly frustrated at staff reporting increased pain. MD and this RN in at bedside. Telling patient she needs to get a safe ride for her son before receiving ordered medications. Patient trying to find safe ride.
--- NOTE | 2022-04-30 10:02 | PC.NURSE ---
Patient refusing percocet stating that does nothing for my pain, I need something stronger. Safe ride will be arriving in approximately one hour, will give ordered medication when they arrive.
[2022-04-30 10:25] VITALS: BP 127/86; PULSE 66; RESP 14; TEMP 36.8; O2SAT 98
[2022-04-30] MEDS: HYDROmorphone HCl 1 MG/ML SYRINGE IM (11:03)
[2022-04-30 11:06] VITALS: BP 125/80; PULSE 71; RESP 18; O2SAT 98
--- NOTE | 2022-04-30 11:11 | PC.NURSE ---
Patients mother in at bedside, medicated per MAR. Nurse leadership in at bedside to speak with patient. Discharge instructions reviewed with no questions at this time.
== END 2022-04-30 11:14 | disposition home or self-care (01) ==
PROVIDERS: Emergency Provider Emergency Medicine Emergency Medical Services; PCP Internal Medicine
DX: R10.2 Pelvic and perineal pain (principal); Z20.822 Contact with and (suspected) exposure to COVID-19; F17.200 Nicotine dependence, unspecified, uncomplicated
CPT/HCPCS: 36415; 80048; 80076; 81001; 81003; 81025; 83690; 85025; 87635; 96372; 99284; J1170